=== PATIENT | female | born 1970 | race Caucasian/White ===

== ENCOUNTER 2024-07-05 08:16 | Day surgery (SDC) | payer BC ==
[2024-07-03 15:10] VITALS: BMI 27.8
[2024-07-05] MEDS: CIPROFLOXACIN 0.3% EYE DROPS 5 ML BOTTLE ONE (08:40)
[2024-07-05] MEDS: TROPICAMIDE 1% 3 ML EYE DROPS ONE (08:40)
[2024-07-05] MEDS: PHENYLEPHRINE 2.5% OPTHALMIC DROP 2ML BOTTLE ONE (08:40)
[2024-07-05] MEDS: CYCLOPENTOLATE 2% OPHTH SOLN 2 ML BOTTLE ONE (08:40)
[2024-07-05] MEDS ORDERED: MIDAZOLAM HCL 2 MG/2 ML SINGLE DOSE VIAL ONE (09:14)
[2024-07-05] MEDS ORDERED: NEO/POLYMYX B SULF/DEXAMETH OPHTHALMIC 5ML BOTTLE ONE (09:38)
[2024-07-05] MEDS ORDERED: LIDOCAINE 1% P/F 10 MG/ML VIAL ONE (09:38)
[2024-07-05] MEDS ORDERED: CARBACHOL 0.01% INTRA-OCULAR 1.5 ML VIAL ONE (09:38)
[2024-07-05] MEDS ORDERED: BSS (NA/CA/MG/K) BALANCED SALT SOLUTION OPHTH SOLN 15 ML BOTTLE ONE (09:38)
[2024-07-05 11:34] VITALS: BP 112/65; PULSE 69; RESP 16; TEMP 97.3
== END 2024-07-05 10:54 | disposition home or self-care (01) ==
LOC: FASU 08:16
PROVIDERS: ATTEND Ophthalmology
PROC: 08RJ3JZ Replacement of Right Lens with Synthetic Substitute, Percutaneous Approach (ICD-10-PCS; principal; 2024-07-05 09:49)
DX: H26.8 Other specified cataract (principal)
CPT/HCPCS: 66984; V2632